=== PATIENT | male | born 1950 | race Hispanic/Latino ===

== ENCOUNTER 2021-02-22 15:00 | Outpatient (RCR) | payer MEDICARE | END 2021-02-24 | LOC: PT 15:00 | PROVIDERS: ATTEND Specialist | DX: M17.11 Unilateral primary osteoarthritis, right knee (principal); S76.311A Strain of muscle, fascia and tendon of the posterior muscle group at thigh level, right thigh, initial encounter; M23.41 Loose body in knee, right knee ==